=== PATIENT | female | born 1935 | race Caucasian/White ===

== ENCOUNTER 2022-08-31 11:10 | Emergency (ER) | payer OTHER ==
[2022-08-31 11:33] VITALS: BMI 18.4
[2022-08-31] MEDS ORDERED: ACETAMINOPHEN 1000 MG/100 ML BAG IVPB ONE (11:47)
[2022-08-31] MEDS ORDERED: TRIMETHOBENZAMIDE HCL 200MG/2ML INJ IM ONE ×2 (11:47→12:06)
[2022-08-31] MEDS ORDERED: ACETAMINOPHEN INJECTION 100 ML IVPB ONE (12:18)
[2022-08-31 12:55] LABS: BASO % 0.8 % (0-2.0); EOS % 1.1 % (0-4.5); HEMATOCRIT 42.2 % (32.4-45.2); HEMOGLOBIN 13.5 GM/dL (10.7-15.3); LYMPH % 11.3 % (8-40); MCH 32.1 pg (25.7-33.7); MCHC 32.1 g/dl (32.0-36.0); MEAN PLT VOLUME 9.3 fl (7.5-11.1); MONO % 7.9 % (3.8-10.2); NEUT % 78.9 % (42.8-82.8); PLATELET COUNT 202 10^3/uL (134-434); RBC 4.22 M/mm3 (3.60-5.2); RDW 13.9 % (11.6-15.6); WHITE BLOOD COUNT 8.7 K/mm3 (4.0-10.0)
[2022-08-31 13:03] LABS: INR 1.44 (0.83-1.09); PROTHROMBIN TIME (PATIENT) 16.6 SEC (9.7-13.0)
[2022-08-31 13:06] LABS: ACTIVATED PTT 29.3 SECONDS (25.2-36.5)
[2022-08-31 13:23] LABS: CALCIUM 9.5 mg/dL (8.5-10.1)
[2022-08-31 13:24] LABS: ALBUMIN 3.7 g/dl (3.4-5.0); BLOOD UREA NITROGEN 23.9 mg/dL (7-18); MAGNESIUM 2.2 mg/dL (1.8-2.4)
[2022-08-31 13:27] LABS: CREATININE 1.1 mg/dL (0.55-1.3); PHOSPHOROUS 3.8 mg/dL (2.5-4.9)
[2022-08-31 13:28] LABS: BILIRUBIN,TOTAL 0.7 mg/dL (0.2-1); TOT PROT 6.6 g/dl (6.4-8.2)
[2022-08-31 15:57] VITALS: BP 101/49; PULSE 61; RESP 17; TEMP 97.8
[2022-08-31 16:32] LABS: EPI CELLS >36 /uL (0-25.1); HYALINE CASTS 2 /uL (0-3.1); URINE APPEARANCE CLOUDY; URINE BACTERIA 262 /uL (0-1359); URINE BILIRUBIN NEGATIVE (NEGATIVE); URINE COLOR YELLOW; URINE GLUCOSE (UA) NEGATIVE (NEGATIVE); URINE KETONE NEGATIVE (NEGATIVE); URINE LEUK ESTERASE 1+ (NEGATIVE); URINE NITRITE NEGATIVE (NEGATIVE); URINE PROTEIN NEGATIVE (NEGATIVE); URINE RBC 14 /uL (0-23.9); URINE UROBILINOGEN 0.2 mg/dL (0.2-1.0); URINE WBC 374 /uL (0-25.8)
== END 2022-08-31 17:13 | disposition home or self-care (01) ==
LOC: JER 11:10
PROC: 3E033GC Introduction of Other Therapeutic Substance into Peripheral Vein, Percutaneous Approach (ICD-10-PCS; principal; 2022-08-31)
PROC: 3E023GC Introduction of Other Therapeutic Substance into Muscle, Percutaneous Approach (ICD-10-PCS; 2022-08-31)
DX: R55 Syncope and collapse (principal); I95.9 Hypotension, unspecified
CPT/HCPCS: 0241U-QW; 36415; 71045-TC-FY; 80053; 81003; 82962; 83735; 84100; 84484; 85025; 85610; 85730; 86850; 86900; 86901; 87086; 93005; 93010; 93971-TC; 99285-25

== ENCOUNTER 2023-11-18 23:30 | Observation (INO) | payer OTHER ==
[2023-11-18 23:54] VITALS: BMI 24.7
[2023-11-19] MEDS ORDERED: ALBUTEROL SO4 2.5/IPRATROPIUM 0.5 INH SOL 3 ML VIAL.NEB. NEB ONE (00:41)
[2023-11-19] MEDS: ALBUTEROL SO4 2.5/IPRATROPIUM 0.5 INH SOL 3 ML VIAL.NEB. NEB ONE (00:49)
[2023-11-19 00:55] LABS: BASO % 0.5 % (0-2.0); EOS % 5.2 % (0-4.5); HEMATOCRIT 41.5 % (32.4-45.2); HEMOGLOBIN 13.8 GM/dL (10.7-15.3); LYMPH % 5.5 % (8-40); MCH 33.3 pg (25.7-33.7); MCHC 33.4 g/dl (32.0-36.0); MEAN CELL VOLUME 99.8 fl (80-96); MEAN PLT VOLUME 9.3 fl (7.5-11.1); MONO % 3.9 % (3.8-10.2); NEUT % 84.9 % (42.8-82.8); PLATELET COUNT 202 10^3/uL (134-434); RBC 4.15 M/mm3 (3.60-5.2); RDW 13.4 % (11.6-15.6); WHITE BLOOD COUNT 13.5 K/mm3 (4.0-10.0)
[2023-11-19 01:05] LABS: INR 1.27 (0.83-1.09); PROTHROMBIN TIME (PATIENT) 14.7 SEC (9.7-13.0)
[2023-11-19 01:07] LABS: ACTIVATED PTT 36.3 SECONDS (25.2-36.5)
[2023-11-19 01:30] LABS: POTASSIUM 4.5 mmol/L (3.5-5.1)
[2023-11-19 01:32] LABS: BLOOD UREA NITROGEN 24.8 mg/dL (7-18); CALCIUM 9.3 mg/dL (8.5-10.1); MAGNESIUM 2.2 mg/dL (1.8-2.4)
[2023-11-19 01:33] LABS: ALBUMIN 3.6 g/dl (3.4-5.0)
[2023-11-19 01:36] LABS: CREATININE 1.1 mg/dL (0.55-1.3)
[2023-11-19 01:37] LABS: BILIRUBIN,TOTAL 0.3 mg/dL (0.2-1); TOT PROT 6.7 g/dl (6.4-8.2)
[2023-11-19 01:40] LABS: N-TERMINAL BNP 785.5 pg/ml (5-450)
[2023-11-19] MEDS ORDERED: ASPIRIN 325 MG TABLET ONE (05:28)
[2023-11-19] MEDS: ASPIRIN 325 MG TABLET PO ONE (05:39)
[2023-11-19] MEDS ORDERED: LEVALBUTEROL HCL 0.63 MG/3 ML VIAL.NEB. IH PRN (06:40)
[2023-11-19] MEDS ORDERED: ACETAMINOPHEN 1000 MG/100 ML BAG IVPB PRN (06:58)
[2023-11-19] MEDS ORDERED: FUROSEMIDE 40 MG TABLET (FP) ONE (09:20)
[2023-11-19] MEDS ORDERED: methylPREDNISolone NA SUCC 40 MG/1 ML VIAL ONE (09:21)
[2023-11-19] MEDS ORDERED: APIXABAN 5 MG TABLET ONE (09:21)
[2023-11-19] MEDS ORDERED: CARVEDILOL 3.125 MG TABLET (FP) ONE (09:21)
[2023-11-19] MEDS ORDERED: SPIRONOLACTONE 25 MG TABLET ONE (09:21)
[2023-11-19] MEDS: FUROSEMIDE 40 MG TABLET (FP) PO SCH (09:22)
[2023-11-19] MEDS: APIXABAN 5 MG TABLET PO SCH (09:22)
[2023-11-19] MEDS: methylPREDNISolone NA SUCC 40 MG/1 ML VIAL IVPUSH SCH (09:22)
[2023-11-19] MEDS: CARVEDILOL 3.125 MG TABLET (FP) PO SCH (09:22)
[2023-11-19] MEDS: SPIRONOLACTONE 25 MG TABLET PO SCH (09:22)
[2023-11-19] MEDS ORDERED: SACUBITRIL/VALSARTAN 24 MG-26 MG TABLET PO SCH (10:00)
[2023-11-19] MEDS: FLUTICASONE/SALMETEROL (WIXELA) 100 MCG/50 MCG DISKUS IH SCH (11:02)
[2023-11-19 11:11] LABS: HEMATOCRIT 41.8 % (32.4-45.2); HEMOGLOBIN 14.2 GM/dL (10.7-15.3); MCH 33.9 pg (25.7-33.7); MEAN CELL VOLUME 99.6 fl (80-96); MEAN PLT VOLUME 9.8 fl (7.5-11.1); RBC 4.19 M/mm3 (3.60-5.2); RDW 13.5 % (11.6-15.6)
[2023-11-19 11:18] LABS: PLATELET COUNT 188 10^3/uL (134-434)
[2023-11-19 11:37] LABS: POTASSIUM 4.5 mmol/L (3.5-5.1)
[2023-11-19 11:41] LABS: ALBUMIN 3.5 g/dl (3.4-5.0); BLOOD UREA NITROGEN 27.1 mg/dL (7-18); CALCIUM 9.3 mg/dL (8.5-10.1); MAGNESIUM 2.6 mg/dL (1.8-2.4)
[2023-11-19 11:44] LABS: CREATININE 1.2 mg/dL (0.55-1.3); PHOSPHOROUS 2.8 mg/dL (2.5-4.9)
[2023-11-19 11:45] LABS: BILIRUBIN,TOTAL 0.4 mg/dL (0.2-1)
[2023-11-19 11:46] LABS: TOT PROT 6.5 g/dl (6.4-8.2)
[2023-11-19 11:59] LABS: ANISOCYTOSIS 0; MACROCYTOSIS 1+
[2023-11-19 15:58] VITALS: BP 105/54; PULSE 66; RESP 18; TEMP 98.5
[2023-11-19] MEDS ORDERED: MONTELUKAST NA 10 MG TABLET PO SCH (22:00)
[2023-11-19] MEDS ORDERED: ATORVASTATIN CA 40 MG TABLET (FP) PO SCH (22:00)
== END 2023-11-19 18:38 | disposition home or self-care (01) ==
LOC: JER 23:30 → JERBED 11-19 05:48
PROVIDERS: ADMIT Internal Medicine; ATTEND Internal Medicine
PROC: 3E033GC Introduction of Other Therapeutic Substance into Peripheral Vein, Percutaneous Approach (ICD-10-PCS; principal; 2023-11-19)
PROC: 3E033GC Introduction of Other Therapeutic Substance into Peripheral Vein, Percutaneous Approach (ICD-10-PCS; 2023-11-19)
DX: J45.901 Unspecified asthma with (acute) exacerbation (principal); R06.00 Dyspnea, unspecified; R11.10 Vomiting, unspecified; I25.10 Atherosclerotic heart disease of native coronary artery without angina pectoris; Z95.0 Presence of cardiac pacemaker; I48.91 Unspecified atrial fibrillation; Z79.01 Long term (current) use of anticoagulants; I51.7 Cardiomegaly; E03.9 Hypothyroidism, unspecified; Z96.653 Presence of artificial knee joint, bilateral; Z88.8 Allergy status to other drugs, medicaments and biological substances
CPT/HCPCS: 0241U-QW; 36415; 71045-TC-FY; 80053; 80061; 83036; 83735; 83880; 84100; 84439; 84443; 84484; 85025; 85610; 85730; 93005; 93010; 93306-TC; 94640; 96374; 99285-25; G0378